=== PATIENT | female | born 1980 | race African-American/Black ===

== ENCOUNTER 2019-03-21 18:32 | Emergency (ER) | payer OTHER ==
[~2019-03-21] VITALS: Ht 167.6 cm; Wt 90.7 kg
[2019-03-21] MEDS ORDERED: PENICILLIN V P500 MG PO (20:07)
[2019-03-21] MEDS ORDERED: ULTRAM 50MG TAB50 MG PO (20:08)
[2019-03-21 20:38] VITALS: BP 112/73
== END 2019-03-21 20:46 | disposition home or self-care (01) ==
LOC: ER 18:32
DX: J03.90 Acute tonsillitis, unspecified (principal); F17.210 Nicotine dependence, cigarettes, uncomplicated

== ENCOUNTER 2019-03-31 18:41 | Inpatient (IN) | payer OTHER ==
[~2019-03-31] VITALS: Ht 167.6 cm; Wt 96.5 kg
[2019-03-31 18:41] VITALS: BP 126/71
[~2019-03-31 18:41] MED LIST: PENICILLIN V P500 MG PO; ULTRAM 50MG TAB50 MG PO
[2019-03-31 19:25] LABS: URINE BILIRUBIN NEGATIVE (Negative); URINE BLOOD NEGATIVE (Negative); URINE CLARITY CLEAR; URINE COLOR YELLOW; URINE GLUCOSE-RANDOM* 3+ (Negative); URINE KETONES 1+ (Negative); URINE LEUKOCYTES-REFLEX TRACE (Negative); URINE NITRITE-REFLEX NEGATIVE (Negative); URINE PROTEIN (DIPSTICK) 1+ (Negative)
[2019-03-31 19:33] LABS: BACTERIA-REFLEX None Seen /HPF (None Seen); CASTS None Seen /LPF (None Seen); CRYSTALS None Seen /LPF (None Seen); SQUAMOUS >10 Many /LPF (0-3); URINE RBC 0-2 Rare /HPF (0-2); YEAST-REFLEX Present (None Seen)
[2019-03-31 19:54] LABS: HEMOGLOBIN 12.1 gm/dL (12.0-15.0); MCH 39.4 pg (26.0-34.0); MCHC 34.6 g/dL (28.0-37.0); MCV 113.7 fL (80.0-100.0); PLATELET COUNT 424 thou/uL (150-400); RBC 3.08 mil/uL (4.20-5.00); RDW 17.2 % (10.5-14.5); WBC 20.4 thou/uL (4.0-11.0)
[2019-03-31 20:01] LABS: CALCIUM 9.6 mg/dL (8.5-10.1); CREATININE 0.9 mg/dL (0.6-1.0)
[2019-03-31 20:08] LABS: ALBUMIN 3.2 g/dL (3.4-5.0); DIRECT BILIRUBIN 0.2 mg/dL (<0.1-0.3); TOTAL PROTEIN 7.7 g/dL (6.4-8.2)
[2019-03-31 20:21] LABS: ABSOLUTE NEUTROPHILS 19.2 thou/uL (1.4-8.2)
[2019-03-31 20:22] LABS: ANISOCYTOSIS 1+; MACROCYTES 3+
[2019-04-01 09:47] LABS: HEMATOCRIT 34.4 % (37.0-47.0); HEMOGLOBIN 11.7 gm/dL (12.0-15.0); MCH 39.5 pg (26.0-34.0); MCHC 34.1 g/dL (28.0-37.0); MCV 115.8 fL (80.0-100.0); RBC 2.97 mil/uL (4.20-5.00); RDW 16.7 % (10.5-14.5); WBC 17.5 thou/uL (4.0-11.0)
[2019-04-01 09:53] LABS: BUN 4 mg/dL (7-18); CALCIUM 8.6 mg/dL (8.5-10.1); CHLORIDE 95 mmol/L (98-107); CO2 28 mmol/L (21-32); CREATININE 0.7 mg/dL (0.6-1.0); GLUCOSE 303 mg/dL (74-106); POTASSIUM 3.5 mmol/L (3.5-5.1); SODIUM 121 mmol/L (136-145)
[2019-04-01 09:55] LABS: ANION GAP < 1 mmol/L (7-16)
[2019-04-01 10:01] VITALS: BP 139/82
[2019-04-01 10:34] VITALS: BP 139/82
[2019-04-01 10:47] VITALS: BP 135/90
--- NOTE | 2019-04-01 14:00 | NUR ---
ADMIITED PT FROM ER INTO 218, VSS ST ON MONITER 100-120. LUNGS DIMINISHED O2 SAT RA IS 93%, TEMP 101.2. NURSING HX AND ASSESSEMENT DONE, PT GIVEN AND EXPLAINED TELEMETRY LETTER, PT VERBALIZES UNDERSTANDING AND SIGNED LETTER. WILL CONTINUE TO MONITER AND CRE FOR PT PER PLAN OF CARE
[2019-04-01 16:26] VITALS: BP 117/68
[2019-04-01 20:04] VITALS: BP 143/81
[2019-04-02 01:08] LABS: GLYCOHEMOGLOBIN (HGB A1C) 10.9 % (4.8-5.6)
[2019-04-02 05:00] VITALS: BP 124/74
[2019-04-02 05:14] LABS: HEMATOCRIT 34.5 % (37.0-47.0); HEMOGLOBIN 11.8 gm/dL (12.0-15.0); MCH 39.3 pg (26.0-34.0); MCHC 34.1 g/dL (28.0-37.0); MCV 115.2 fL (80.0-100.0); PLATELET COUNT 360 thou/uL (150-400); RBC 2.99 mil/uL (4.20-5.00); WBC 13.2 thou/uL (4.0-11.0)
[2019-04-02 05:39] LABS: CALCIUM 8.6 mg/dL (8.5-10.1); CREATININE 0.6 mg/dL (0.6-1.0); MAGNESIUM 1.6 mg/dL (1.8-2.4); POTASSIUM 3.6 mmol/L (3.5-5.1)
[2019-04-02 06:12] LABS: ABSOLUTE NEUTROPHILS 11.4 thou/uL (1.4-8.2); ANISOCYTOSIS 1+; MACROCYTES 2+; PLATELET ESTIMATE NORMAL
[2019-04-02 07:25] VITALS: BP 130/77
--- NOTE | 2019-04-02 07:42 | NUR ---
ASSESSMENTS CHARTED. PATIENT HAS NOT BEEN TAKING ANY HOME MEDS FOR ABOUT SIX MONTHS, WOULD LIKE TO GET THEM RESTARTED WHILE SHE IS HERE. RECEIVING IV ANTIBIOTICS. RECEIVING FLUIDS FOR HYDRATION.
[2019-04-02 11:36] VITALS: BP 132/84
--- NOTE | 2019-04-02 18:38 | NUR ---
ASSUMED CARE AT SHIFT CHANGE, ALERT AND ORIENTED X4. BG TRENDING DOWN, VSS AND AFEBRILE. WALKED THE HALLWAYS AND TOLERATED WELL. SR-ST ON THE MONITOR. AND WILL CONTINUE WITH POC
[2019-04-02 20:16] VITALS: BP 148/80
--- NOTE | 2019-04-03 03:48 | NUR ---
ASSUMED CARE 1899. VSS. ASSESSMENT CHARTED. ST WHEN UP TO BATHROOM BELOW 120. PT DENIES CP, N/V. C/O PAIN FROM COUGHING AND DRINESS. RT NOTIFIED, HUMIDIFIER ADDED. PT STATES MUCH BETTER SHES ABLE TO SLEEP NOW. GEODETIC SURVEYOR TECHNOLOGIST NOTIFIED PRN BREATHING TREATMENTS ADDED. PLAN FOR LABS THIS AM AND CXR. WILL CONTINUE TO MONITOR AND WITH POC.
[2019-04-03 04:24] LABS: HEMATOCRIT 32.8 % (37.0-47.0); HEMOGLOBIN 11.4 gm/dL (12.0-15.0); MCH 39.8 pg (26.0-34.0); MCHC 34.7 g/dL (28.0-37.0); MCV 114.7 fL (80.0-100.0); RBC 2.86 mil/uL (4.20-5.00); RDW 16.7 % (10.5-14.5)
[2019-04-03 04:26] LABS: ANION GAP 11 mmol/L (7-16); BUN 2 mg/dL (7-18); CALCIUM 8.7 mg/dL (8.5-10.1); CHLORIDE 99 mmol/L (98-107); CHOLESTEROL 167 mg/dL (<200); CO2 24 mmol/L (21-32); CREATININE 0.6 mg/dL (0.6-1.0); GLUCOSE 215 mg/dL (74-106); HDL CHOLESTEROL 26 mg/dL (>40); LDL CHOLESTEROL 117 mg/dL (<100); MAGNESIUM 1.6 mg/dL (1.8-2.4); POTASSIUM 3.7 mmol/L (3.5-5.1); SODIUM 134 mmol/L (136-145); TC:HDL 6.4 Ratio (Not establshd); TRIGLYCERIDE 123 mg/dL (<150); VLDL 25 mg/dL (<40)
[2019-04-03 04:27] LABS: SERUM ASSESSMENT Clear
[2019-04-03 05:33] VITALS: BP 138/85
[2019-04-03 08:24] VITALS: BP 137/92
[2019-04-03 12:50] VITALS: BP 151/97
[2019-04-03 17:54] VITALS: BP 146/76
--- NOTE | 2019-04-03 19:25 | NUR ---
ASSUMED CARE AT SHIFT CHANGE, ALERT ORIENTED X. ST ON THE MONITOR, AND VSS. PATIENT GETS TACHY, SOB, AND O2 SAT DROPS TO 83% WHEN AMBULATING, BUT REPORTED RELIEVE WITH 02 NC AT 2L. S/B DR GREGORY AND MEDICATION ADJUSTED. AND WILL CONTINUE WITH POC.
[2019-04-03 19:44] VITALS: BP 123/80
--- NOTE | 2019-04-04 03:50 | NUR ---
ASSUMED CARE 1900. VSS. ASSESSMENT CHARTED. PT DENIES PAIN, N/V PT LEFT 02 ON FOR THE NIGHT, HELPED KEEP HER FORM GETTING SOA WHEN AMBULATING TO BATHROOM. ST ON MONITOR WHEN UP. ABX AND FLUIDS PER EMAR. WILL CONTINUE TO MONITOR AND WITH POC.
[2019-04-04 03:54] VITALS: BP 116/70
[2019-04-04 07:13] VITALS: BP 129/75
[2019-04-04 08:02] LABS: HEMATOCRIT 35.7 % (37.0-47.0); HEMOGLOBIN 12.3 gm/dL (12.0-15.0); MCH 39.4 pg (26.0-34.0); MCHC 34.4 g/dL (28.0-37.0); MCV 114.5 fL (80.0-100.0); PLATELET COUNT 304 thou/uL (150-400); RBC 3.11 mil/uL (4.20-5.00); WBC 12.4 thou/uL (4.0-11.0)
[2019-04-04 08:37] LABS: ABSOLUTE NEUTROPHILS 8.8 thou/uL (1.4-8.2); ATYPICAL LYMPHS 2 %; PLATELET ESTIMATE NORMAL
[2019-04-04 08:41] LABS: ANISOCYTOSIS 1+
[2019-04-04 08:42] LABS: MACROCYTES 2+
--- NOTE | 2019-04-04 10:35 | NUR ---
met with patient who admits with CAP. She is independent with adls and self care and cont to work. She reports her employment aware she is here in hospital. She has health insurance for prescription coverage. She has no PCP. [facility] campus close left information for physicians avail at [facility]. Patient does not wear oxygen at home currently on 5 Liters.
--- NOTE | 2019-04-04 11:01 | NUR ---
AAOX4. CALM, COOPERATIVE. ADULT SON ASLEEP AT BEDSIDE. RESP EVEN AND UNLABORED, O2 AT 3L PER NC. FREQUENT CHECKS; WILL CONTINUE TO MONITOR.
[2019-04-04 13:10] LABS: CALCIUM 9.8 mg/dL (8.5-10.1); CREATININE 0.7 mg/dL (0.6-1.0); MAGNESIUM 1.8 mg/dL (1.8-2.4); POTASSIUM 3.6 mmol/L (3.5-5.1)
[2019-04-04 15:36] VITALS: BP 137/78
[2019-04-04 19:54] VITALS: BP 138/76
[2019-04-05 04:37] LABS: HEMATOCRIT 32.4 % (37.0-47.0); HEMOGLOBIN 11.2 gm/dL (12.0-15.0); MCH 39.4 pg (26.0-34.0); MCHC 34.6 g/dL (28.0-37.0); RBC 2.85 mil/uL (4.20-5.00); RDW 16.8 % (10.5-14.5); WBC 13.8 thou/uL (4.0-11.0)
[2019-04-05 04:41] VITALS: BP 117/61
[2019-04-05 04:47] LABS: CALCIUM 9.2 mg/dL (8.5-10.1); CREATININE 0.7 mg/dL (0.6-1.0); MAGNESIUM 1.8 mg/dL (1.8-2.4); POTASSIUM 4.2 mmol/L (3.5-5.1)
--- NOTE | 2019-04-05 05:17 | NUR ---
pt resting quietly in room, up adlib to br, vss, prn tylenol given for c/o pain when coughing, iv infusing, will con't to monitor per ppoc.
[2019-04-05 07:41] VITALS: BP 135/82
--- NOTE | 2019-04-05 14:03 | HC ---
[facility] [place] [address] CONSULTATION Name: SE BARNHART Room #: 218-P ADM IN M.R.#: [id number] Admission: 03/31/19 ������������������ Attend Phys: Walter Ross MD Discharge: ������������������ Date of : 76 Report #: [id number] THIS REPORT FOR: //name// CC: LEONIDAS physician/PCP Walter Ross LOCATION: [facility], room [address] Huang. SUBJECTIVE: A 38-year-old black female recently hospitalized for multiple medical problems including pneumonia. Historically, the patient states she was diagnosed with hypothyroidism 10 or more years ago. She stopped taking her unknown dosage of thyroid replacement approximately one year ago for multiple reasons, in general because she had difficulty finding a primary care doctor. During that time, the patient had shown weight gain and increasing lethargy, all consistent with worsening hypothyroidism. There is a family history of hypothyroidism occurring in a maternal uncle, but the patient has no other family history available other than at least 1 year or more of noncompliance. The patient's endocrine history is essentially as per chart. LABORATORY DATA: Free T4 low at 0.2. TSH elevated at 41. PHYSICAL EXAMINATION: Well-nourished, well-developed 38-year-old black female in no acute distress. The patient is afebrile, heart rate 105 and regular, blood pressure 137/78. Skin shows some decreased turgor. The patient is alert and oriented x 3, but offers very little useful health information. Deep tendon reflexes are slightly diminished bilaterally. The thyroid is somewhat enlarged without specific nodularity or adenopathy, moves well with deglutition. 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 The patient has been noncompliant and is now profoundly hypothyroid due to absence of adequate replacement for over 1 year. PLAN: The patient is already on 100 mcg per day of L-thyroxine replacement. Since she has no recollection of her prior dosage, this would seem to be an appropriate starting point. Thyroid function can be checked in several days to make sure her indices are progressing towards normal, but it will take a full 6 weeks before an accurate determination can be performed and decision is made as to whether to alter the current dose of replacement. Thank you very much for asking me to see the patient. I will continue to follow with you for treatment of hypothyroidism. I have strongly advised the patient to be more compliant and consistent with [address] [address] CONSULTATION Name: SE BARNHART Room #: 218-P [facility] IN M.R.#: [id number] Admission: 03/31/19 ������������������ Attend Phys: Walter Ross MD Discharge: ������������������ Date of : 76 Report #: [id number] replacement and followup physician visits in the future for her own health and safety. ��������������������������������������������� <ELECTRONICALLY SIGNED> ���������������������������������������� By: Dave Juarez MD ��������������������������������������������� 04/05/19 1403 [id number] Dave Juarez MD /adam
[2019-04-05 19:28] VITALS: BP 136/86
--- NOTE | 2019-04-05 19:36 | NUR ---
PT ALERT AND ORIENTED. VSS. UP IN THE CHAIR THIS AM. ENCOURAGED TO USE IS. ST ON TELE WITH ACTIVITY. WILL CONTINUE TO MONITOR.
[2019-04-06 03:58] VITALS: BP 121/71
--- NOTE | 2019-04-06 07:17 | NUR ---
[facility] 190. PT/VITALS STABLE. DENIES ANY PAIN TOLERATES ACTIVITY WELL. UP AD AMANDA. ASSESSMENT CHARTED. PROGRESSING WELL WITH POC. PLAN IS TO CONTINUE WITH ABX TX WELL MONITOR AND MANAGE BLOOD SUGAR AND THYROID HORMONE LEVELS. WILL CONTINUE TO MONITOR AND FOLLOW WITH POC
[2019-04-06 07:27] VITALS: BP 130/86
[2019-04-06 15:30] VITALS: BP 124/77
[2019-04-06 17:22] LABS: BE(vivo) 4.1 mmol/L (-2 to +3); HCO3 26.9 mmol/L (22.0-26.0); PCO2 33.9 mmHg (35.0-45.0); pH 7.518 (7.360-7.450)
[2019-04-06 17:23] LABS: PO2 51.1 mmHg (80.0-100.0)
--- NOTE | 2019-04-06 18:08 | NUR ---
ASSESSMENT DOCUMENTED. PT ALERT AND ORIENTED. VSS. UP IN THE CHAIR THIS SHIFT. EVALUATED BY PHYSICAL THERAPIST. CRITICAL LAB RESULTS CALLED IN TO DR. GREGORY. WILL CONTINUE TO MONITOR.
[2019-04-06 19:33] VITALS: BP 117/69
[2019-04-07 05:31] VITALS: BP 129/77
[2019-04-07 05:35] LABS: HEMATOCRIT 30.2 % (37.0-47.0); HEMOGLOBIN 10.3 gm/dL (12.0-15.0); MCH 38.9 pg (26.0-34.0); MCHC 34.2 g/dL (28.0-37.0); MCV 113.7 fL (80.0-100.0); PLATELET COUNT 389 thou/uL (150-400); RBC 2.65 mil/uL (4.20-5.00); RDW 17.8 % (10.5-14.5); WBC 10.2 thou/uL (4.0-11.0)
[2019-04-07 05:57] LABS: ALBUMIN 2.2 g/dL (3.4-5.0); CALCIUM 9.6 mg/dL (8.5-10.1); CREATININE 0.7 mg/dL (0.6-1.0); MAGNESIUM 1.7 mg/dL (1.8-2.4); POTASSIUM 4.1 mmol/L (3.5-5.1); TOTAL BILIRUBIN 0.5 mg/dL (<0.1-1.0); TOTAL PROTEIN 7.1 g/dL (6.4-8.2)
--- NOTE | 2019-04-07 06:25 | NUR ---
ASSUME CARE 1900. PT/VITALS STABLE. DENIES ANY PAIN. UP AD AMANDA TO BATHROOM. ASSESSMENT CHARTED. PROGRESSING ELL WITH POC. ADEQUATE REST NOTED THROUGH THE NIGHT. PLAN IS TO CONTINUE ABX TX AND CONTINUE TO MANAGE THYROID AND BLOOD SUGAR LEVELS. WILL CONTINUE TO MONITOR AND FOLLOW WITH POC
[2019-04-07 07:16] LABS: ABSOLUTE NEUTROPHILS 7.8 thou/uL (1.4-8.2)
[2019-04-07 07:17] LABS: ANISOCYTOSIS 1+; LARGE PLATELETS OCCASIONAL; MACROCYTES 2+; POIKILOCYTOSIS SLIGHT
[2019-04-07 08:44] VITALS: BP 116/74
[2019-04-07 12:00] VITALS: BP 113/76
--- NOTE | 2019-04-07 13:13 | NUR ---
No dc indicated today. Pt starting iv steroids and hoping to wean off o2 prior to dc home. Would recommend medications from the [employer] $4 list as the pt has insurance but can not always afford her copay. Pt has been provided physician info for possible pcp followup at pr.
[2019-04-07 13:15] VITALS: BP 116/74
--- NOTE | 2019-04-07 14:00 | NUR ---
Nutrition: pt admitted with PNA, CAP, sepsis and seen due to LOS. Hx uncontrolled DM, noncompliance with metformin due to finances. A1C 10.9. Pt reports appetite improving and no significant weight changes. Obesity class 1 with BMI 34. Pt was not familiar with diet-provided education on diabetic diet, see education log. Low nutrition risk.
[2019-04-07 16:00] VITALS: BP 137/91
--- NOTE | 2019-04-07 18:00 | NUR ---
ASSESSMENT CHARTED. PT ALERT AND ORIENTED. RT TREATMENT GIVEN ORDERED. SEEN BY DR HOLLAND. ORDERS NOTED. UP IN THE CHAIR THIS SHIFT. WILL CONTINUE TO MONITOR.
[2019-04-07 19:31] VITALS: BP 119/73
[2019-04-08 05:00] VITALS: BP 118/69
--- NOTE | 2019-04-08 08:09 | NUR ---
ASSUME CARE 1900. PT/VITALS STABLE. DENIES ANY PAIN. UP AD AMANDA. ASSESSMENT ASCHARTED. PROGRESSING WELL WITH POC. PLAN IS TO CONTINUE TO IMPROVE RESP FUNCTION AND MANAGE THYROID HORMONES AND BLOOD SUGAR LEVEL. PT STARTED ON STEROIDS. ADEQUATE REST NOTED THROUGH SHIFT. WILL CONTNUE TO MONITOR AND FOLLOW WITH POC
[2019-04-08 11:56] VITALS: BP 122/72
--- NOTE | 2019-04-08 13:22 | NUR ---
PT ALERT AND ORIENTED TIMES FOUR. VSS, 95%4L, SR ON TELE. PT DENIES PAIN. PT TOLERATES MEDS AND MEALS. PT UP AB AMANDA WITH STEADY GAIT. FAMILY AT BEDSIDE. PT SLOWLY PROGRESISNG TOWRADS POC GOALS.
[2019-04-08 16:48] VITALS: BP 118/80
[2019-04-08 20:34] VITALS: BP 131/85
--- NOTE | 2019-04-09 04:36 | NUR ---
RECEIVED PT'S REPORT AT 1933; PT. ON CHAIR; AOX4; DURING ASSESSMENT PT. ON BED; NO C/O PAIN; C/O ANTIBIOTIC BEING A BIG PILL TO SWALLOW; 94-95% O2 SAT ON 2L NC; TITRATE TO 1L; 02 SAT 94% ON 1L; AT MIDNIGHT TITRATE TO OL; PT'S O2 SAT 94%; NO C/O SOB; AT 0100 96% ON RA; ABLE TO RES THROUGH THE NIGHT; NO C/O PAIN; NO C/O SOB; MONITORING; ASSESSMENT CHARGED; FOLLOWING POC; WILL PASS ON REPORT.
[2019-04-09 04:45] VITALS: BP 135/71
[2019-04-09 05:37] LABS: ALBUMIN 2.6 g/dL (3.4-5.0); CALCIUM 10.1 mg/dL (8.5-10.1); CREATININE 0.7 mg/dL (0.6-1.0); PHOSPHORUS 3.4 mg/dL (2.5-4.9); POTASSIUM 4.8 mmol/L (3.5-5.1)
[2019-04-09 07:59] VITALS: BP 132/82
[2019-04-09] MEDS ORDERED: AUGMENTIN 875-1 EACH PO (08:59)
[2019-04-09] MEDS ORDERED: GLUCOPHAGE500 MG PO (08:59)
[2019-04-09] MEDS ORDERED: SYNTHROID100 MC1 PO (09:00)
[2019-04-09] MEDS ORDERED: TRADJENTA5 MG PO (09:00)
[2019-04-09] MEDS ORDERED: PREDNISONE 10 M10 MG PO (09:01)
[2019-04-09 09:27] VITALS: BP 116/74
--- NOTE | 2019-04-09 12:07 | NUR ---
ASSUMED CARE OF PT AT 0700. ASSESSMENT CHARTED. A&O,X4. DENIES PAIN OR SOA. RT APPLIED 2 L NC AT BEGINNING OF SHIFT. WEANED TO ROOM AIR PER DR. HOLLAND. SATS ABOVE 92%, NO OXYGEN AT HOME. CLEAR/CRACKLE LUNG SOUNDS. ACHS, INSULIN GIVEN PER SLIDING SCALE. OKAY TO GIVE METFORMIN TODAY, 48 HOURS AFTER CONTRAST. NEW DISCHARGE ORDERS. NEW SCRIPTS AND CARENOTES GIVEN. EDUCATION ABOUT FOLLOW UP AND PCP GIVEN AT BEDSIDE. PT STATES SHE WILL BE COMPLIANT. IV REMOVED, NO ACTIVE BLEEDING NOTED. PT DRESSED IN PERSONAL CLOTHING. BELONGINGS GATHERED AND SENT WITH PT. PT REFUSED WHEELCHAIR ESCORT, WALKED OUT BY STAFF WITH FAMILY. NO QUESTIONS OR CONCERNS. PT LEFT THE UNIT AT 12:10.
== END 2019-04-09 12:13 | disposition home or self-care (01) | DRG 871 ==
LOC: ER 18:41 → EROBS 21:33 → 2N 21:33
PROVIDERS: Emergency Medicine; Hospitalist; Internal Medicine; Nurse Practitioner Acute Care; ADMIT Internal Medicine
DX: A41.9 Sepsis, unspecified organism (principal); J96.01 Acute respiratory failure with hypoxia; J69.0 Pneumonitis due to inhalation of food and vomit; E87.1 Hypo-osmolality and hyponatremia; E05.90 Thyrotoxicosis, unspecified without thyrotoxic crisis or storm; E03.9 Hypothyroidism, unspecified; E83.42 Hypomagnesemia; F17.210 Nicotine dependence, cigarettes, uncomplicated; E11.65 Type 2 diabetes mellitus with hyperglycemia; E87.6 Hypokalemia; F10.10 Alcohol abuse, uncomplicated; Z79.84 Long term (current) use of oral hypoglycemic drugs; Z91.14 Patient's other noncompliance with medication regimen; Z71.6 Tobacco abuse counseling
CPT/HCPCS: 10081